=== PATIENT | female | born 1990 | race Caucasian/White ===

== ENCOUNTER 2016-12-01 19:36 | Emergency (ER) | payer SELFPAY ==
--- NOTE | 2016-12-01 20:32 | ER Document Report ---
ED Medical Screen (RME) - General Stated Complaint: BACK PAIN Notes: right chest wall pain started this am patient has had back pain since her epidural in August taking generic aleve I have greeted and performed a rapid initial assessment of this patient. A comprehensive ED assessment and evaluation of the patient, analysis of test results and completion of the medical decision making process will be conducted by additional ED providers. TRAVEL OUTSIDE OF THE [place] IN LAST 30 DAYS: No - Related Data Allergies/Adverse Reactions: No Known Allergies Allergy (Verified 04/15/14 11:59) Past Medical History Skin Medical History: Denies Hx Eczema, Denies Hx MRSA, Denies Hx Psoriasis - Immunizations Hx Diphtheria, Pertussis, Tetanus Vaccination: Yes Physical Exam - Vital signs Vitals: Temp Pulse Resp BP Pulse Ox 97.9 F 66 16 101/56 L 98 12/01/16 20:30 12/01/16 20:30 12/01/16 20:30 12/01/16 20:30 12/01/16 20:30 Course - Vital Signs Vital signs: Temp Pulse Resp BP Pulse Ox 97.9 F 66 16 101/56 L 98 12/01/16 20:30 12/01/16 20:30 12/01/16 20:30 12/01/16 20:30 12/01/16 20:30
[2016-12-01] MEDS ORDERED: ACETAMINOPHEN 325 MG TABLET PO ONE (20:36)
[2016-12-01 22:41] VITALS: BP 96/72
--- NOTE | 2016-12-01 22:44 | ER Document Report ---
HPI - HPI Patient complains to provider of: right upper back pain Pain Level: 4 Context: Patient is a 26-year-old female that comes emergency department for chief complaint of pain in her right upper back, states she's had this for about 2 months intermittently but has noticed it almost every other day recently. Patient delivered 2 months ago, is right handed, has a small child at home she is lifting and taking care of. Patient denies any specific injuries to the area , denies any surgeries on her back, denies any history of back problems. Patient denies any other symptoms including focal numbness or weakness, fevers. - REPRODUCTIVE Reproductive: DENIES: : - DERM Skin Color: Normal Past Medical History - General Information source: Patient - Social History Smoking Status: Current Every Day Smoker Chew tobacco use (# tins/day): No Frequency of alcohol use: None Drug Abuse: None Lives with: Family Family History: None Patient has suicidal ideation: No Patient has homicidal ideation: No - Medical History Medical History: Negative Renal/ Medical History: Denies: Hx Peritoneal Dialysis Skin Medical History: Denies Hx Eczema, Denies Hx MRSA, Denies Hx Psoriasis Past Surgical History: Reports: Hx Section, Hx Gynecologic Surgery - tubal ligation - Immunizations Hx Diphtheria, Pertussis, Tetanus Vaccination: Yes Vertical Provider Document - CONSTITUTIONAL General Appearance: WD/WN, No Apparent Distress - INFECTION CONTROL TRAVEL OUTSIDE OF THE [place] IN LAST 30 DAYS: No - HEENT HEENT: Atraumatic, Normocephalic - NECK Neck: Normal Inspection - RESPIRATORY Respiratory: Breath Sounds Normal, No Respiratory Distress O2 Sat by Pulse Oximetry: 99 - CARDIOVASCULAR Cardiovascular: Regular Rate, Regular Rhythm - GI/ABDOMEN Gastrointestinal: Abdomen Soft, Abdomen Non-Tender - BACK Back: negative: Normal Inspection - Patient has tenderness along the lower trapezius muscles on the right side and adjacent to the right scapula, patient still has full range of motion of the shoulder, she has slight tenderness with placing her arm behind her back on the right side. Normal spine/midline exam, normal upper and lower extremity range of motion, strength, distal neurovascular exam. - MUSCULOSKELETAL/EXTREMETIES Musculoskeletal/Extremeties: MAEW, FROM, Non-Tender Course - Re-evaluation Re-evalutation: Examination appears to indicate mild musculoskeletal symptoms. Placing on Robaxin, no concerning abnormalities noted. Mild hypotension, patient denies dizziness, patient is alert and well-appearing, patient requesting to go home. - Vital Signs Vital signs: Temp Pulse Resp BP Pulse Ox 98.1 F 70 18 96/72 L 99 12/01/16 22:38 12/01/16 22:38 12/01/16 22:39 12/01/16 22:38 12/01/16 22:38 Discharge - Discharge Clinical Impression: Upper back pain on right side, Muscle strain Condition: Stable Disposition: HOME, SELF-CARE Additional Instructions: Examination is consistent with muscle strain and spasm, apply heat to the area, continue Aleve twice a day, drink plenty of fluids, take the Robaxin muscle relaxer. Avoid lifting or twisting with the right arm/shoulder until symptoms resolve if possible. Follow-up with primary care. Return to emergency department for any concerning or worsening symptoms including swelling, redness fever, numbness, etc. Prescriptions: Methocarbamol [Robaxin 750 mg Tablet] 750 mg PO Q6 #20 tablet
== END 2016-12-01 22:47 | disposition home or self-care (01) ==
LOC: ER 19:36
DX: T14.8 Other injury of unspecified body region (principal); X58.XXXA Exposure to other specified factors, initial encounter; M54.89 Other dorsalgia; I95.9 Hypotension, unspecified; F17.200 Nicotine dependence, unspecified, uncomplicated
CPT/HCPCS: 99283

== ENCOUNTER 2017-03-19 23:25 | Emergency (ER) | payer SELFPAY ==
--- NOTE | 2017-03-20 00:25 | ER Document Report ---
HPI - HPI Patient complains to provider of: Requesting treatment for scabies Pain Level: Denies Context: 26-year-old female was told to come by [facility] to get treatment for scabies. Both of her children was found to have scabies. The children under the care of [facility] for the past 3 weeks. Associated Symptoms: None Exacerbated by: Denies Relieved by: Denies - ROS ROS below otherwise negative: Yes Systems Reviewed and Negative: Yes All other systems reviewed and negative - REPRODUCTIVE LMP: 02/03/17 Reproductive: DENIES: : - DERM Skin Color: Normal, [place] Past Medical History - General Information source: Patient - Social History Smoking Status: Current Every Day Smoker Lives with: Spouse/Significant other Family History: None Patient has suicidal ideation: No Patient has homicidal ideation: No - Medical History Medical History: Negative Renal/ Medical History: Denies: Hx Peritoneal Dialysis Skin Medical History: Denies Hx Eczema, Denies Hx MRSA, Denies Hx Psoriasis Past Surgical History: Reports: Hx Section, Hx Gynecologic Surgery - tubal ligation - Immunizations Hx Diphtheria, Pertussis, Tetanus Vaccination: Yes Vertical Provider Document - CONSTITUTIONAL Agree With Documented VS: Yes Exam Limitations: No Limitations General Appearance: No Apparent Distress - INFECTION CONTROL TRAVEL OUTSIDE OF THE [place] IN LAST 30 DAYS: No - HEENT HEENT: Normal ENT Exam Notes: Decayed teeth - NECK Neck: Supple - RESPIRATORY Respiratory: Breath Sounds Normal, No Respiratory Distress O2 Sat by Pulse Oximetry: 99 - CARDIOVASCULAR Cardiovascular: Regular Rate, Regular Rhythm - MUSCULOSKELETAL/EXTREMETIES Musculoskeletal/Extremeties: MAEW, FROM - NEURO Level of Consciousness: Awake, Alert - DERM Integumentary: Rash - Papular rash at waistline which is suspicious for scabies Course - Vital Signs Vital signs: Temp Pulse Resp BP Pulse Ox 98.2 F 79 16 115/77 99 03/19/17 23:28 03/19/17 23:28 03/19/17 23:28 03/19/17 23:28 03/19/17 23:28 Discharge - Discharge Clinical Impression: Scabies Condition: Good Disposition: HOME, SELF-CARE Instructions: Scabies ([facility]), Anti-Mite Skin Creams Additional Instructions: cream used neck to toes as instructed, wash off in 12 hours to er any concerns Prescriptions: Permethrin [Elimite] 60 gm TP NOW #1 cream..g.
[2017-03-20 00:42] VITALS: BP 114/74
== END 2017-03-20 00:45 | disposition home or self-care (01) ==
LOC: ER 23:25
DX: B86 Scabies (principal); F17.200 Nicotine dependence, unspecified, uncomplicated
CPT/HCPCS: 99282